=== PATIENT | male | born 1990 | race American Indian/Alaskan Native ===

== ENCOUNTER 2022-02-20 22:40 | Emergency (ER) | payer SELFPAY ==
[2022-02-21 00:30] LABS: Alanine Aminotransferase 14 units/L (7-56); Albumin 4.7 g/dL (3.9-5); BUN/Creatinine Ratio 11; Basophils % (Auto) 0.4 % (0.0-1.8); Blood Urea Nitrogen 10 mg/dL (9-20); Calcium 9.5 mg/dL (8.4-10.2); Eosinophils # (Auto) 0.1 K/mm3 (0.0-0.4); Eosinophils % (Auto) 1.3 % (0.0-4.3); Hematocrit 44.1 % (35.5-45.6); Hemoglobin 14.2 gm/dl (11.8-15.2); Hemolysis Index 7; Lymphocytes # (Auto) 3.3 K/mm3 (1.2-5.4); Mean Corpuscular HGB Conc 32 % (32-34); Mean Corpuscular Volume 90 fl (84-94); Monocytes # (Auto) 0.5 K/mm3 (0.0-0.8); Monocytes % (Auto) 6.6 % (0.0-7.3); Platelet Count 197 K/mm3 (140-440); Red Blood Count 4.89 M/mm3 (3.65-5.03); Red Cell Distribution Width 14.4 % (13.2-15.2)
--- NOTE | 2022-02-21 00:52 | XRay Report ---
CHEST 2 VIEWS INDICATION / CLINICAL INFORMATION: Chest Pain. COMPARISON: None available. FINDINGS: SUPPORT DEVICES: None. HEART / MEDIASTINUM: Heart size and mediastinal contour appear within normal limits. LUNGS / PLEURA: No significant pulmonary or pleural abnormality. No pneumothorax. BONES: No significant osseous abnormality. ADDITIONAL FINDINGS: No significant additional findings. IMPRESSION: 1. No active cardiopulmonary disease. Signer Name: Cm Puentes II, MD Signed: 02/21/2022 12:48 AM Workstation Name: [id number]
--- NOTE | 2022-02-21 04:50 | Emergency Department Report ---
ED General Adult HPI - General Chief complaint: Chest Pain Stated complaint: CHEST PAIN X 4DAYS Time Seen by Provider: 02/21/22 04:12 Source: patient Mode of arrival: Ambulatory Limitations: No Limitations - History of Present Illness Initial comments: Patient is a 31-year-old male who presents for anterior medial chest pain. Pain described as sharp achy exacerbated by deep inspiration and movement. Pain is relieved by nothing tried. There is been no fevers no chills no productive cough. Patient is currently alert oriented x3 amatory is tolerating p.o. intake at this time without symptoms. -: Gradual - Related Data Previous Rx's Medication Instructions Recorded Last Taken Type Acetaminophen/Codeine [Tylenol 1 tab PO Q6H PRN #12 tab 06/07/18 Unknown Rx /Codeine # 3 tab] Naproxen [Naprosyn] 500 mg PO BID PRN #30 tablet 06/07/18 Unknown Rx Naproxen 500 mg PO BID PRN #30 tab 02/21/22 Unknown Rx Allergies Allergy/AdvReac Type Severity Reaction Status Date / Time No Known Allergies Allergy Unverified 03/07/14 16:21 ED Review of Systems ROS: Stated complaint: CHEST PAIN X 4DAYS Other details as noted in HPI Constitutional: denies: chills, fever, malaise Eyes: denies: eye pain, eye discharge, vision change ENT: denies: ear pain, throat pain Respiratory: denies: cough, shortness of breath, wheezing Cardiovascular: denies: chest pain, palpitations Endocrine: no symptoms reported Gastrointestinal: denies: abdominal pain, nausea, diarrhea Genitourinary: denies: urgency, dysuria Musculoskeletal: denies: back pain, joint swelling, arthralgia Skin: denies: rash, lesions Neurological: denies: headache, weakness, paresthesias Psychiatric: denies: anxiety, depression Hematological/Lymphatic: denies: easy bleeding, easy bruising ED Past Medical Hx - Social History Smoking Status: Current Every Day Smoker Substance Use Type: None - Medications Home Medications: Home Medications Medication Instructions Recorded Confirmed Last Taken Type Acetaminophen/Codeine [Tylenol 1 tab PO Q6H PRN #12 tab 06/07/18 Unknown Rx /Codeine # 3 tab] Naproxen [Naprosyn] 500 mg PO BID PRN #30 tablet 06/07/18 Unknown Rx Naproxen 500 mg PO BID PRN #30 tab 02/21/22 Unknown Rx ED Physical Exam - General Limitations: No Limitations General appearance: alert, in no apparent distress - Head Head exam: Present: atraumatic, normocephalic - Eye Eye exam: Present: EOMI Pupils: Present: normal accommodation - ENT ENT exam: Present: normal orophraynx, mucous membranes moist - Neck Neck exam: Present: normal inspection, full ROM. Absent: tenderness, lymphadenopathy - Respiratory Respiratory exam: Present: normal lung sounds bilaterally, chest wall tenderness. Absent: respiratory distress, wheezes, rales, rhonchi, stridor - Cardiovascular Cardiovascular Exam: Present: regular rate, normal rhythm, normal heart sounds - GI/Abdominal GI/Abdominal exam: Present: soft, normal bowel sounds. Absent: distended, tenderness, guarding, rebound, rigid, bruit, hernia - Rectal Rectal exam: Present: deferred - Extremities Exam Extremities exam: Present: normal inspection, full ROM, normal capillary refill. Absent: tenderness - Back Exam Back exam: Present: normal inspection, full ROM. Absent: CVA tenderness (R), CVA tenderness (L) - Neurological Exam Neurological exam: Present: alert, oriented X3, CN II-XII intact, normal gait - Expanded Neurological Exam Expanded Patient oriented to: Present: person, place, time Speech: Present: fluid speech Motor strength exam: RUE: 5, LUE: 5, RLE: 5, LLE: 5 Best Eye Response (Raine): (4) open spontaneously Best Motor Response (Raine): (6) obeys commands Best Verbal Response ([place]): (5) oriented Raine Total: 15 - Psychiatric Psychiatric exam: Present: normal affect, normal mood - Skin Skin exam: Present: warm, dry, intact, normal color. Absent: rash ED Course Vital Signs 02/20/22 23:05 Temperature 99.0 F Pulse Rate 64 Respiratory 16 Rate Blood Pressure 106/47 O2 Sat by Pulse 100 Oximetry ED Medical Decision Making - Lab Data Result diagrams: 02/20/22 23:45 02/20/22 23:45 Labs 02/20/22 02/20/22 02/21/22 23:45 23:45 02:36 WBC 8.4 RBC 4.89 Hgb 14.2 Hct 44.1 MCV 90 MCH 29 MCHC 32 RDW 14.4 Plt Count 197 Lymph % (Auto) 40.0 H Loup % (Auto) 6.6 Eos % (Auto) 1.3 Baso % (Auto) 0.4 Lymph # (Auto) 3.3 Loup # (Auto) 0.5 Eos # (Auto) 0.1 Baso # (Auto) 0.0 Seg Neutrophils % 51.7 Seg Neutrophils # 4.3 Sodium 144 Potassium 4.4 Chloride 106.5 Carbon Dioxide 28 Anion Gap 14 BUN 10 Creatinine 0.9 Estimated GFR > 60 BUN/Creatinine Ratio 11 Glucose 103 H Calcium 9.5 Total Bilirubin 0.20 AST 12 ALT 14 Alkaline Phosphatase 96 Troponin T < 0.010 Total Protein 7.6 Albumin 4.7 Albumin/Globulin Ratio 1.6 - EKG Data EKG shows normal: sinus rhythm, axis, intervals, QRS complexes, ST-T waves Rate: normal - EKG Data Interpretation: normal EKG (Normal sinus rhythm no ST elevated OK interpreted by ED attending.) - Radiology Data Radiology results: report reviewed, image reviewed CHEST 2 VIEWS INDICATION / CLINICAL INFORMATION: Chest Pain. COMPARISON: None available. FINDINGS: SUPPORT DEVICES: None. HEART / MEDIASTINUM: Heart size and mediastinal contour appear within normal limits. LUNGS / PLEURA: No significant pulmonary or pleural abnormality. No pneumothorax. BONES: No significant osseous abnormality. ADDITIONAL FINDINGS: No significant additional findings. IMPRESSION: 1. No active cardiopulmonary disease. Signer Name: Jenaro Puentes II, MD Signed: 02/21/2022 12:48 AM Workstation Name: [id number] Transcribed By: LORETTA Dictated By: JENARO PUENTES II, MD Electronically Authenticated By: JENARO PUENTES II, MD Signed Date/Time: 02/21/2247 DD/ TD/TT: - Medical Decision Making EKG normal sinus rhythm no ST elevated OK, labs noted normal. Pain is reproducible to deep palpation. There is no swelling no ecchymosis no fevers or chills no wounds at this time. Plan DC to home, take [id number] NSAIDs as needed for pain. Follow-up with your doctor in 2 to 3 days. Return to emergency department should symptoms worsen. Critical care attestation.: If time is entered above; I have spent that time in minutes in the direct care of this critically ill patient, excluding procedure time. ED Disposition Clinical Impression: Chest wall pain Disposition: 01 HOME / SELF CARE / HOMELESS Is pt being admited?: No Does the pt Need Aspirin: No Condition: Stable Instructions: Chest Wall Pain, [id number], Nonspecific Chest Pain, Adult Additional Instructions: Take medication as prescribed for pain, follow-up with your doctor in 2 to 3 days. Return to emergency department should symptoms worsen. Prescriptions: Naproxen 500 mg PO BID PRN #30 tab PRN Reason: pain Referrals: VIVIAN JUÁREZ MD [Staff Physician] - 3-5 Days Forms: Work/School Release Form(ED) Time of Disposition: 05:03
[2022-02-21 05:37] VITALS: BP 136/80
--- NOTE | 2022-02-24 09:43 | Electrocardiograph Report ---
[facility] Test Date: 2022-02-20 Test Time: 23:06:40 Pat Name: KRISTY TINOCO Department: Room: Gender: M Pick Up Operator: FREEDOM : 1990 Requested By: ERIC DE OLIVEIRA Order Number: [id number] Reading MD: Tim Plascencia Measurements Intervals [place] Rate: 58 P: 14 VT: 136 QRS: -5 QRSD: 88 T: -16 QT: 433 QTc: 425 Interpretive Statements Sinus bradycardia Nonspecific T abnormalities, inferior leads No previous ECG available for comparison Electronically Signed On 02-24-2022 9:42:51 EDT by Tim Plascencia
== END 2022-02-21 05:34 | disposition home or self-care (01) ==
LOC: ED 22:40
DX: R07.9 Chest pain, unspecified (principal); F17.200 Nicotine dependence, unspecified, uncomplicated
CPT/HCPCS: 36415; 71046; 80053; 84484; 85025; 93005; 99283